=== PATIENT | male | born 1950 | race Caucasian/White ===

== ENCOUNTER 2018-08-05 08:03 | Outpatient (CLI) | payer MEDICARE, BC ==
[2018-08-05 11:35] LABS: BASOPHILS % (AUTO) 0.7 %; EOSINOPHILS # (AUTO) 0.2 10^3/uL (0.0-0.7); HGB - HEMOGLOBIN 15.1 g/dL (14.0-18.0); MEAN CORPUSCULAR HEMOGLOBIN 28.7 pg (27.0-31.0); MEAN CORPUSCULAR HGB CONC 31.7 g/dL (32.0-36.0); MEAN CORPUSCULAR VOLUME 90.5 fL (80.0-94.0); MEAN PLATELET VOLUME 12.7 fL (7.4-11.4); MONOCYTES # (AUTO) 0.6 10^3/uL (0.0-1.0); MONOCYTES % (AUTO) 10.4 %; NEUTROPHILS # (AUTO) 3.9 10^3/uL (1.5-6.6); NEUTROPHILS % (AUTO) 67.7 %; PLT - PLATELET COUNT 178 10^3/uL (130-450); RED BLOOD COUNT 5.26 10^6/uL (4.70-6.10); RED CELL DISTRIBUTION WIDTH 14.1 % (12.0-15.0); WHITE BLOOD COUNT 5.7 x10^3/uL (4.8-10.8)
[2018-08-05 11:43] LABS: ALBUMIN 3.7 g/dL (3.2-5.5); ALBUMIN/GLOBULIN RATIO 1.4 (1.0-2.2); ALKALINE PHOSPHATASE 41 IU/L (42-121); ALT ALANINE AMINOTRANSFERASE 17 IU/L (10-60); AST ASPARTATE AMINOTRANSFERASE 19 IU/L (10-42); BILIRUBIN,TOTAL 0.8 mg/dL (0.2-1.0); BUN - BLOOD UREA NITROGEN 20 mg/dL (6-20); CALCIUM 8.9 mg/dL (8.5-10.3); CARBON DIOXIDE - CO2 25 mmol/L (21-32); CHLORIDE 103 mmol/L (101-111); CHOL/HDL RATIO 2.5 (<5.0); CHOLESTEROL 145 mg/dL; CREATININE 0.9 mg/dL (0.6-1.2); GFR - MDRD 84 (>89); GLUCOSE 96 mg/dL (70-100); HDL CHOLESTEROL 58 mg/dL; SODIUM 139 mmol/L (135-145); TOTAL PROTEIN 6.4 g/dL (6.7-8.2)
== END 2018-08-05 08:04 | disposition home or self-care (01) ==
LOC: LAB.F 08:03
PROVIDERS: ATTEND Allergy & Immunology
DX: E78.5 Hyperlipidemia, unspecified (principal); J45.998 Other asthma; D12.6 Benign neoplasm of colon, unspecified; J82 Pulmonary eosinophilia, not elsewhere classified
CPT/HCPCS: 36415; 80053; 80061; 83036; 83721; 84443; 85025

== ENCOUNTER 2018-08-06 10:00 | Outpatient (CLI) | payer MEDICARE, BC | END 2018-08-06 10:01 | disposition home or self-care (01) | LOC: LAB.F 10:00 | PROVIDERS: ATTEND Allergy & Immunology | DX: J45.50 Severe persistent asthma, uncomplicated (principal) | CPT/HCPCS: 36415; 81599; 85004; 85048 ==

== ENCOUNTER 2018-08-15 09:29 | Outpatient (CLI) | payer MEDICARE, BC ==
--- NOTE | 2018-08-17 08:55 | CT Report ---
Reason: LUNG NODULE Procedure Date: 08/15/2018 Accession Number: [id number] / [id number] Procedure: CT - CHEST WO CPT Code: FULL RESULT: EXAM: CT CHEST WITHOUT IV CONTRAST EXAM DATE: 08/15/2018 09:43 AM. CLINICAL HISTORY: Lung nodule. COMPARISONS: None. TECHNIQUE: Routine helical CT imaging was performed through the chest. IV contrast: None. Reconstructions: Coronal and sagittal. In accordance with CT protocol optimization, one or more of the following dose reduction techniques were utilized for this exam: automated exposure control, adjustment of mA and/or KV based on patient size, or use of iterative reconstructive technique. FINDINGS: Lungs/Pleura: 4 mm right upper lobe nodule on image 36 series 4, likely 4 mm nodule at the right lung base posteriorly in an area of dependent changes on image 46, 3 mm left upper lobe nodule image 16, 5 mm left upper lobe nodule image 20, 4 mm left lower lobe nodule image 29, and 5 mm nodule left lower lobe image 54. Minimal bilateral dependent changes. No josef consolidation. No bronchiectasis or fibrotic lung disease or significant emphysema. No pleural effusion or pneumothorax. Mediastinum: No mediastinal or hilar lymphadenopathy by size criteria. Calcifications in the subcarinal node indicate prior granulomatous disease. No pericardial effusion. Bones: Unremarkable. Visualized Abdomen: Unremarkable. Other: None. IMPRESSION: Bilateral lung nodules in the lower and upper lungs measure up to 5 mm as described above. Comparison imaging of the apparently known lung nodules is not available. Recommend continued follow-up based on Fleischner Society criteria, taking into account previous imaging if available. Fleischner Society Recommendations 2017 MacMahon et al. Radiology 2017 Solid Nodules-Low Risk Patients: <6 mm (single or multiple) - No routine follow-up* Solid Nodules-High Risk Patients: <6 mm (single or multiple) -Optional CT at 12 months* *Nodules < 6mm do not require routine follow-up, but suspicious nodule morphology, upper lobe location, or both may warrant 12 month follow-up. [facility]
== END 2018-08-15 09:30 | disposition home or self-care (01) ==
LOC: DI 09:29
PROVIDERS: ATTEND Registered Nurse
DX: R91.8 Other nonspecific abnormal finding of lung field (principal)
CPT/HCPCS: 71250

== ENCOUNTER 2018-10-28 10:57 | Outpatient (CLI) | payer MEDICARE, BC | END 2018-10-28 10:58 | disposition home or self-care (01) | LOC: RT 10:57 | PROVIDERS: ATTEND Internal Medicine Gastroenterology | DX: E78.5 Hyperlipidemia, unspecified (principal); J45.998 Other asthma; E66.9 Obesity, unspecified; Z86.010 Personal history of colon polyps | CPT/HCPCS: 93005 ==